=== PATIENT | male | born 1975 | race Native Hawaiian/Other Pacific Islander ===

== ENCOUNTER 2017-02-19 10:43 | Emergency (ER) | payer BC ==
[~2017-02-19] VITALS: Ht 185.4 cm; Wt 115.7 kg
[~2017-02-19 10:43] MED LIST: LISI10TA11 PO; MOBIC15 MG PO
[2017-02-19 11:20] VITALS: BP 151/92; TEMP 98
== END 2017-02-19 11:22 | disposition home or self-care (01) ==
LOC: ED 10:43
DX: Z48.02 Encounter for removal of sutures (principal)